=== PATIENT | female | born 1945 | race Caucasian/White ===

== ENCOUNTER 2025-03-19 06:19 | Day surgery (SDC) | payer MEDICARE ==
[2025-03-18 10:18] VITALS: BMI 35.9
[2025-03-19] MEDS ORDERED: PROPOFOL 20 ML ONE ×2 (06:49→08:01)
[2025-03-19] MEDS ORDERED: Lidocaine 1% (PF) 30 ML VIAL ONE (06:49)
[2025-03-19] MEDS ORDERED: GLYCOPYRROLATE/PF 0.2 MG/ML VIAL ONE (06:49)
[2025-03-19] MEDS ORDERED: PHENYLEPHRINE-NS 100 MCG/ML 10 ML SYRINGE ONE (06:50)
== END 2025-03-19 09:45 | disposition home or self-care (01) ==
LOC: SDC 06:19
PROVIDERS: ATTEND Internal Medicine Cardiovascular Disease
PROC: 5A2204Z Restoration of Cardiac Rhythm, Single (ICD-10-PCS; principal; 2025-03-19)
DX: I48.91 Unspecified atrial fibrillation (principal); I10 Essential (primary) hypertension; E03.9 Hypothyroidism, unspecified; Z79.899 Other long term (current) drug therapy; Z79.01 Long term (current) use of anticoagulants; Z79.890 Hormone replacement therapy
CPT/HCPCS: 92960; 93005; 93312; J2704; J3490; 93010